=== PATIENT | male | born 1975 ===

== ENCOUNTER 2021-03-22 12:07 | Emergency (ER) | payer SELFPAY ==
[2021-03-22] MEDS ORDERED: Sodium Chloride 0.9% 1,000 ML IV ONE (12:25)
[2021-03-22 13:45] LABS: ACETAMINOPHEN <2.0 ug/mL; BLOOD UREA NITROGEN,BUN 13 mg/dL (7.0-18.0); CARBON DIOXIDE,CO2 33.2 mmol/L (21.0-32.0); CHLORIDE,CL 101 mmol/L (98-107); GLUCOSE RANDOM 92 mg/dL (74-106); LIPASE 97 U/L (73-393); POTASSIUM,K 4.1 mmol/L (3.5-5.1); SODIUM,NA 143 mmol/L (136-148)
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
--- NOTE | 2021-03-22 20:07 | PCM.EKG ---
#1 Interpretation EKG Date: 03/22/21 Time: 12:26 Rhythm: NSR Rate (Beats/Min): 61 [place]: Normal P-Wave: Present QRS: Normal ST-T: Other (No elevation or depression. T wave inversion in III and aVR) QT: Normal Comparison: NA - No Prior EKG EKG Interpretation Comments: Sinus Rhythm with nonspecific T wave inversion
== END 2021-03-22 13:38 | disposition left against medical advice (07) ==
LOC: MW.ED 12:07
DX: Z00.00 Encounter for general adult medical examination without abnormal findings (principal); R45.1 Restlessness and agitation
CPT/HCPCS: 36415; 80053; 80143; 80179; 80305; 80307; 82140; 82550; 83690; 83735; 84439; 84443; 85025; 93005; 99285; J7030; 99282

== ENCOUNTER 2021-03-30 19:12 | Emergency (ER) | payer SELFPAY ==
[2021-03-30] MEDS ORDERED: Labetalol 100 MG/20 ML MDV IVPUSH ONE (19:24)
[2021-03-30] MEDS ORDERED: niCARdipine/Normal Saline 20 MG/200 ML BAG ONE (19:46)
[2021-03-30] MEDS ORDERED: niCARdipine/Normal Saline 20 MG in Premix Bag 1 BAG IV ONE (19:49)
[2021-03-30 20:03] LABS: BLOOD UREA NITROGEN,BUN 12 mg/dL (7.0-18.0); CARBON DIOXIDE,CO2 26.9 mmol/L (21.0-32.0); CHLORIDE,CL 106 mmol/L (98-107); GLUCOSE RANDOM 119 mg/dL (74-106); POTASSIUM,K 3.5 mmol/L (3.5-5.1); SODIUM,NA 143 mmol/L (136-148)
--- NOTE | 2021-03-30 20:04 | CT ---
INDICATION: AMS. RLE BABINSKI, NON-COMMUNICATIVE CT HEAD WITHOUT CONTRAST TECHNIQUE: Multiple axial CT images were performed through the head without intravenous contrast administration. COMPARISON: No previous studies are currently available for comparison. FINDINGS: There is a large acute intraparenchymal hematoma in the frontal region, centered in the right frontal lobe and also extending across the midline into the left frontal lobe, measuring approximately 5.8 x 4.2 x 4.9 centimeters. A finger-like extension of the intraparenchymal hematoma extends posteriorly within the parasagittal portion of the right frontal lobe, measuring 6.4 x 1.6 x 1.8 centimeters. Extensive intraventricular hemorrhage is present with a large amount of blood within the lateral ventricles, 3rd ventricle, and 4th ventricle. The frontal intraparenchymal hematoma produces mass effect, with compression of the frontal horn of the lateral ventricle and approximately 14 millimeters of right to left midline shift. There is moderate dilation of the ventricular system including the temporal horns of both lateral ventricles, consistent with hydrocephalus. Moderate probable subarachnoid hemorrhage is noted within the interhemispheric fissure and along the tentorium bilaterally. There is an incidental small lipoma in the midline adjacent to the posterior aspect of the corpus callosum. Osseous structures are within normal limits and no fractures are seen. Included portions of the paranasal sinuses and mastoid air cells are normally aerated. IMPRESSION: 1. Large lobulated intraparenchymal hematoma as detailed above, predominantly involving the right frontal lobe but also extending across the midline into the left frontal lobe. Associated mass-effect with compression of the frontal horn of the right lateral ventricle and approximately 14 millimeters of right to left midline shift. 2. Extensive intraventricular hemorrhage. Mild to moderate hydrocephalus. 3. Moderate probable subarachnoid hemorrhage within the interhemispheric fissure and along the tentorium. Results were discussed with Dr. Wakefield at 7:45 p.m. on 03/30/2021. KAREN WALKER MD [facility] Dictated by Alexys Walker MD @ 03/30/2021 8:01:13 PM Dictated by: Alexys Walker MD @ 03/30/2021 20:02:38 (Electronically Signed)
--- NOTE | 2021-03-30 20:57 | EDM.PDOC ---
ED HPI GENERAL MEDICAL PROBLEM - General Stated Complaint: ALTERED MENTAL STATUS Time Seen by Provider: 03/30/21 19:12 - History of Present Illness INITIAL COMMENTS - FREE TEXT/NARRATIVE: CHIEF COMPLAINT(S): Altered mental status HISTORY OF PRESENT ILLNESS: This is a 45-year-old man with a past medical history of hypertension with recent emergency department visit for altered mental status who is a alert and oriented x4, ambulatory without any neuro logical deficit who left AGAINST MEDICAL ADVICE after threatening staff members who comes to the emergency department with a chief complaint of altered mental status. Per EMS: They stated that the blast furnace operator of a motel where he was staying called the police to do a wellness check. When the police opened the patient's room that the patient was on the floor lying flat and twitching his upper arms. They stated that in route his glucose level was 151 and his heart rate was ranging from 44-90 and that he was hypertensive. Otherwise history is limited. Patient is currently noncommunicative therefore full history is unobtainable. The patient is able to communicate by blinking his eyes. He denied any pain, headache, nausea or vomiting. REVIEW OF SYSTEMS: Constitutional: Denies fever, chills. Eyes: Denies eye pain Ears, Nose, Mouth, & Throat: Denies earache Cardiovascular: Denies chest pain Respiratory: Denies shortness of breath Gastrointestinal: Denies abdominal pain, nausea, vomiting, diarrhea, hematochezia. Genitourinary: Denies hematuria Skin:Denies a rash MSK: Denies joint pain Neurological: Denies blurred vision, numbness, tingling, weakness Psychiatric: Denies depression PAST MEDICAL HISTORY: As per history of present illness and as reviewed below otherwise noncontributory. SURGICAL HISTORY: As per history of present illness and as reviewed below otherwise noncontributory. SOCIAL HISTORY: As per history of present illness and as reviewed below otherwise noncontributory. FAMILY HISTORY: As per history of present illness and as reviewed below otherwise noncontributory. EXAMINATION OF ORGAN SYSTEMS/BODY AREAS: Constitutional: Blood pressure is 169/99, heart rate 53, respiratory rate 12 with an oxygen saturation of 96% on room air. Temperature 36.1 General: Young man who does not appear to be in any acute distress who is sitting supine with his eyes open looking around the room. Psychiatric: Appears to be mildly anxious however difficult to assess Eyes: No scleral icterus or conjunctival erythema pupils were 3 to 4 mm and reactive bilaterally. Extraocular movements intact. There does not appear to be any gaze deficit. Unable to assess visual hussein. ENMT: Moist mucous membranes. No pharyngeal erythema facies are symmetrical. Tongue protrudes midline. No stridor, no drooling, no trismus. Cardiovascular: Bradycardic but regular no gallops, murmurs, or rubs. Bilateral upper extremity pulses symmetric and intact. No peripheral edema. No JVD. Respiratory: Lungs clear to auscultation bilaterally. No wheezes, rales, or rhonchi. Gastrointestinal: Soft, non-tender, non-distended. Normoactive bowel sounds Genitourinary: No suprapubic tenderness Musculoskeletal: The patient has what appears to be a contracture of his left upper extremity with writhing movements of bilateral hands and arms. The patient is able to move his legs and arms equally. Skin: No lesions or abrasions. No evidence of trauma on the body. Neurological: Alert, GCS E4 V(NT), M(6). Strength appears to be equal in bilateral upper and lower extremities. There is an upward going Babinski of the left foot. Downward going Babinski of the right foot. MEDICAL DECISION MAKING AND COURSE IN THE ED WITH INTERPRETATION/REVIEW OF DIAGNOSTIC STUDIES: This is a 45-year-old man with a past medical history of hypertension who comes to the emergency department with altered mental status who has an upward going Babinski of his left foot, contractures of his left upper extremity with some writhing movements of his hands. Given the hypotension and bradycardia I am concerned about the possibility of intracranial hemorrhage. Blood pressure is currently 169/99. We will provide the patient with 20 mg of IV labetalol. Will obtain a CT head without contrast. An EKG was obtained which did not reveal any acute signs of ischemia. Will obtain labs including CBC, CMP, coags, lactic acid, troponin, and alcohol level. Place the patient on cardiac monitoring and pulse oximetry. I did go with the patient to CT. On review of the noncontrast CT it appears that he does have extensive intracranial hemorrhage. At this time the patient will likely need to be transferred. We did not obtain CTA of the head and neck. I did contact [facility] in [place] and spoke with Dr. Reynolds who accepted the patient for transfer. I did discuss with him regarding intubation. At this time he states that neurosurgery typically does not want the patient intubated. At this time I agree with physician as the patient is alert, protecting his airway and is following commands. We will hold off on intubation at this time. We also contacted flight at this time. I did discuss this with the patient and he did express understanding by blinking his eyes for yes. winch operator at this time did reveal sinus bradycardia and pulse oximetry with good waveform was appropriate. Laboratory: CBC reveals a leukocytosis of 12.82 without any left shift. CMP reveals hyperglycemia at 119 and mild elevation in CPK at 466 otherwise unremarkable. Troponin is negative. TSH is normal. Lactic acid is 3.8. Coags are within normal limits. Serum alcohol level is negative. The radiological images were viewed by myself along with reading the report from the radiologist.. CT head without contrast reveals a large lobulated intraparenchymal hematoma in the frontal region centered in the right frontal lobe extending across the midline to the left frontal lobe. This measures 5.8 x 4.2 x 4.9 cm. A fingerlike extension of the intraparenchymal hematoma extends posteriorly within the parasagittal portion of the right frontal lobe measuring 6.4 x 1.6 x 1.8 cm. There is extensive intraventricular hemorrhage present with a large amount of blood in the lateral ventricles, third ventricle and fourth ventricle. The frontal parenchymal hematoma produces mass-effect with compression of the frontal horn of the lateral ventricle and approximately 14 mm of right to left midline shift. There is moderate dilation of the ventricular system. Moderate probable subarachnoid hemorrhage within the interhemispheric fissure along the tentorium bilaterally. In discussion with radiologist there does not appear to be any evidence of herniation at this time When the patient returned from CT the patient's blood pressure had increased. Therefore we did elevate the head of bed to 30 degrees and started a nicardipine drip. At this time flight crew was at bedside. The flight crew wanted the patient to be intubated. I did discuss with him at this time that given he is protecting his airway that he is following commands and that neurosurgery typically wants to evaluate patient's before intubation that at this time intubation is not indicated. I did contact neurosurgery at this time and spoke with Dr. Zamora who did not recommend hypertonic's or mannitol. She did recommend blood pressure control and to send the patient to the emergency department at [facility] in [place]. Time: 1903 Twelve-lead EKG interpreted by myself. Normal sinus rhythm at a rate of 51beats per minute. Normal axis. [place] interval is 134ms. QRS duration is 93ms. ST segments are normal other than a isolated ST elevation in V2. No T wave inversions no Q waves present. Hypertrophy not noted. QTC is 469. Prior EKG dated 03/22/2021 did reveal a T wave inversion in lead III and no ST elevation in V2 and heart rate was normal at that time.. Interpretation: Sinus bradycardia with isolated ST elevation in the 2. At the time of transfer laboratory analysis was still pending. The patient was sent to [facility] in [place] in stable yet serious condition. Titration of the nicardipine was discussed with flight crew at bedside. DISPOSITION: The patient was transferred to [facility] in [place] in stable yet serious condition CONDITION: Serious PROCEDURES: Cardiac monitoring interpretation, pulse oximetry interpretation FINAL IMPRESSION(S)/DIAGNOSES: 1. Acute intracranial hemorrhage 2. Acute right frontal hematoma with mass-effect 3. Acute subarachnoid hemorrhage 4. Acute intraventricular hemorrhage Critical Care Procedure Note Authorized and performed by: Luis Wakefield M.D. Critical Care Time: 78 minutes Due to a high probability of clinically significant, life threatening deterioration, the patient required my highest level of preparedness to intervene emergently and I personally spent this critical care time directly and personally managing the patient. This critical care time included obtaining a history, examining the patient, pulse oximetry; ordering and review of studies; arranging urgent treatment with development of a management plan; evaluation of a patients reponse to treatment; frequent assessment; and discussions with other providers. This critical care time was performed to assess and manage the high probability of imminent, life threatening deterioration that could result in multiorgan failure. It was exclusive of separate billable procedures and treating other patients. Please see MDM section and rest of the note for further information on patient assessment and treatment. Please see MDM section and rest of the note for further information on patient assessment and treatment. Luis Waekfield M.D. - Related Data Allergies Allergy/AdvReac Type Severity Reaction Status Date / Time No Known Allergies Allergy Verified 03/30/21 19:15 Home Meds: Home Meds . [No Known Home Meds] 03/22/21 [History] Past Medical History - Past Health History Medical/Surgical History: Denies Medical/Surgical History - Infectious Disease History Infectious Disease History: Reports: Chicken Pox Social & Family History - Family History Family Medical History: No Pertinent Family History - Tobacco Use Tobacco Use Status *Q: Unknown Ever Used Tobacco - Recreational Drug Use Recreational Drug Use Frequency: Patient Refuses To Answer ED ROS GENERAL - Review of Systems Review Of Systems: See Below ED EXAM, GENERAL - Physical Exam Exam: See Below Course - Vital Signs Last Recorded V/S: Last Vital Signs Temp 36.1 C 03/30/21 19:15 Pulse 53 L 03/30/21 19:58 Resp 20 03/30/21 19:58 BP 196/100 H 03/30/21 19:58 Pulse Ox 100 03/30/21 19:58 - Orders/Labs/Meds Orders: Active Orders 24 hr Category Date Time Status REFLEX LACTIC ACID YES OR NO [CHEM] Routine Lab 03/30/21 20:07 Received Labs: Laboratory Tests 03/30/21 03/30/21 03/30/21 Range/Units 19:15 19:15 19:33 WBC 25.82 H (4.0-11.0) K/uL RBC 5.35 (4.50-5.90) M/uL Hgb 16.7 (13.0-17.0) g/dL Hct 47.6 (38.0-50.0) % MCV 89.0 (80.0-98.0) fL MCH 31.2 (27.0-32.0) pg MCHC 35.1 (31.0-37.0) g/dL RDW Std Deviation 44.0 (28.0-62.0) fl RDW Coeff of Benji 14 (11.0-15.0) % Plt Count 243 (150-400) K/uL MPV 11.80 (7.40-12.00) fL Neut % (Auto) 95.3 H (48.0-80.0) % Lymph % (Auto) 3.0 L (16.0-40.0) % [place] % (Auto) 1.7 (0.0-15.0) % Eos % (Auto) 0.0 (0.0-7.0) % Baso % (Auto) 0.0 (0.0-1.5) % Neut # (Auto) 24.6 H (1.4-5.7) K/uL Lymph # (Auto) 0.8 (0.6-2.4) K/uL [place] # (Auto) 0.4 (0.0-0.8) K/uL Eos # (Auto) 0.0 (0.0-0.7) K/uL Baso # (Auto) 0.0 (0.0-0.1) K/uL Nucleated RBC % 0.0 /100WBC Nucleated RBCs # 0 K/uL INR APTT (18.6-31.3) SEC PTT Mix Interpretation Sodium 143 (136-148) mmol/L Potassium 3.5 (3.5-5.1) mmol/L Chloride 106 (98-107) mmol/L Carbon Dioxide 26.9 (21.0-32.0) mmol/L BUN 12 (7.0-18.0) mg/dL Creatinine 0.9 (0.8-1.3) mg/dL Est Cr Clr Drug Dosing 107.02 mL/min Estimated GFR (MDRD) > 60.0 ml/min Glucose 119 H (74-106) mg/dL Lactic Acid 3.8 H* (0.4-2.0) mmol/L Calcium 9.3 (8.5-10.1) mg/dL Magnesium 2.1 (1.8-2.4) mg/dL Total Bilirubin 0.5 (0.2-1.0) mg/dL AST 23 (15-37) IU/L ALT 24 (14-63) IU/L Alkaline Phosphatase 94 (46-116) U/L Creatine Kinase 466 H (26-308) U/L Troponin I < 0.050 (0.000-0.056) ng/mL Total Protein 7.7 (6.4-8.2) g/dL Albumin 4.0 (3.4-5.0) g/dL Globulin 3.7 (2.6-4.0) g/dL Albumin/Globulin Ratio 1.1 (0.9-1.6) TSH 3rd Generation 0.46 (0.36-3.74) uIU/mL Ethyl Alcohol < 3.0 mg/dL 03/30/21 Range/Units 19:55 WBC (4.0-11.0) K/uL RBC (4.50-5.90) M/uL Hgb (13.0-17.0) g/dL Hct (38.0-50.0) % MCV (80.0-98.0) fL MCH (27.0-32.0) pg MCHC (31.0-37.0) g/dL RDW Std Deviation (28.0-62.0) fl RDW Coeff of Benji (11.0-15.0) % Plt Count (150-400) K/uL MPV (7.40-12.00) fL Neut % (Auto) (48.0-80.0) % Lymph % (Auto) (16.0-40.0) % [place] % (Auto) (0.0-15.0) % Eos % (Auto) (0.0-7.0) % Baso % (Auto) (0.0-1.5) % Neut # (Auto) (1.4-5.7) K/uL Lymph # (Auto) (0.6-2.4) K/uL [place] # (Auto) (0.0-0.8) K/uL Eos # (Auto) (0.0-0.7) K/uL Baso # (Auto) (0.0-0.1) K/uL Nucleated RBC % /100WBC Nucleated RBCs # K/uL INR 1.05 APTT 22.1 (18.6-31.3) SEC PTT Mix Interpretation Cancelled Sodium (136-148) mmol/L Potassium (3.5-5.1) mmol/L Chloride (98-107) mmol/L Carbon Dioxide (21.0-32.0) mmol/L BUN (7.0-18.0) mg/dL Creatinine (0.8-1.3) mg/dL Est Cr Clr Drug Dosing mL/min Estimated GFR (MDRD) ml/min Glucose (74-106) mg/dL Lactic Acid (0.4-2.0) mmol/L Calcium (8.5-10.1) mg/dL Magnesium (1.8-2.4) mg/dL Total Bilirubin (0.2-1.0) mg/dL AST (15-37) IU/L ALT (14-63) IU/L Alkaline Phosphatase (46-116) U/L Creatine Kinase (26-308) U/L Troponin I (0.000-0.056) ng/mL Total Protein (6.4-8.2) g/dL Albumin (3.4-5.0) g/dL Globulin (2.6-4.0) g/dL Albumin/Globulin Ratio (0.9-1.6) TSH 3rd Generation (0.36-3.74) uIU/mL Ethyl Alcohol mg/dL Meds: Medications Discontinued Medications Generic Name Dose Route Start Last Admin Trade Name Freq PRN Reason Stop Dose Admin Nicardipine HCl Confirm 03/30/21 19:46 03/30/21 20:17 Cardene In Ns 20 Mg/200 Ml Administered 03/30/21 19:47 Not Given Dose 20 mg in 200 mls @ as directed .ROUTE .STK-MED ONE Nicardipine HCl 20 mg/ Premix 200 mls @ 50 mls/hr 03/30/21 19:49 03/30/21 20:00 IV 03/30/21 23:48 50 mls/hr TITRATE ONE Administration Labetalol HCl 20 mg 03/30/21 19:24 03/30/21 19:27 Labetalol 100 Mg/20 Ml Mdv IVPUSH 03/30/21 19:25 20 mg ONETIME ONE Administration Protocol Departure - Departure Time of Disposition: 20:56 Disposition: DC/Tfer to Acute Hospital 02 Condition: Serious Clinical Impression: Acute intracranial hemorrhage - Discharge Information *PRESCRIPTION DRUG MONITORING PROGRAM REVIEWED*: No *COPY OF PRESCRIPTION DRUG MONITORING REPORT IN PATIENT RADHA: No Referrals: PCP,None [Primary Care Provider] - Forms: ED Department Discharge Sepsis Event Note (ED) - Evaluation Sepsis Screening Result: No Definite Risk - Focused Exam Vital Signs: Vital Signs Temp Pulse Resp BP Pulse Ox 03/30/21 19:58 53 L 20 196/100 H 100 03/30/21 19:56 48 L 22 H 202/91 H 97 03/30/21 19:54 47 L 23 H 212/104 H 95 03/30/21 19:52 50 L 18 212/104 H 97 03/30/21 19:46 48 L 19 212/101 H 96 03/30/21 19:43 60 20 226/105 H 96 03/30/21 19:38 50 L 20 158/68 H 98 03/30/21 19:15 36.1 C 53 L 12 169/99 H 96 - My Orders Last 24 Hours: My Active Orders 03/30/21 20:07 REFLEX LACTIC ACID YES OR NO [CHEM] Routine - Assessment/Plan Last 24 Hours: My Active Orders 03/30/21 20:07 REFLEX LACTIC ACID YES OR NO [CHEM] Routine
== END 2021-03-30 20:20 ==
LOC: MW.ED 19:12
DX: I60.9 Nontraumatic subarachnoid hemorrhage, unspecified (principal); I61.5 Nontraumatic intracerebral hemorrhage, intraventricular
CPT/HCPCS: 36415; 70450; 80053; 80307; 82550; 83605; 83735; 84443; 84484; 85025; 85610; 85730; 93005; 96365; 96375; 99291; 99292; J3490